=== PATIENT | male | born 1965 | race Caucasian/White ===

== ENCOUNTER → 2016-09-20 | Outpatient (CLI) | payer OTHER, BC ==
--- NOTE | 2016-09-20 14:11 | DI ---
MRI LUMBAR SPINE W/O CN,09/20/2016 1:11 PM: Clinical History: Low back pain Previous Exam: June 16, 2007 Findings: Multiplanar MR images are obtained through the lumbar spine without contrast, and demonstrate a anato cedric alignment without fractures. Postsurgical changes are seen consistent with interbody fusion at L1 / 2. There is disc desiccation at this level there is also some bony fusion at this level. The distal spinal cord descends normally with a normal conus at the L1 level. The paraspinal musculature is unremarkable. The major vascular flow voids are also unremarkable. Visualized portions of the kidneys are also unremarkable. Individual intervertebral disc spaces: L1/2: Status post interbody fusion of L1/2 without significant stenosis. L2/3: No significant stenosis. L3/4: There is a 3 mm broad-based disc bulge with facet and ligamentum flavum hypertrophy contributin g to mild bilateral lateral recess stenosis. L4/5: There is disc desiccation and an annular fissuring with a very small extrusion with some facet and ligamentum flavum hypertrophy contributing to stable mild bilateral lateral recess stenosis. L5/S1: There is disc desiccation, annular fissuring and a broad-based disc bulge with facet and ligam entum flavum hypertrophy contributing to stable mild to moderate bilateral lateral recess stenosis. Impression: L3/4: There is a 3 mm broad-based disc bulge with facet and ligamentum flavum hypertrophy contributin g to mild bilateral lateral recess stenosis. L4/5: There is disc desiccation and an annular fissuring with a very small extrusion with some facet and ligamentum flavum hypertrophy contributing to stable mild bilateral lateral recess stenosis. L5/S1: There is disc desiccation, annular fissuring and a broad-based disc bulge with facet and ligam entum flavum hypertrophy contributing to stable mild to moderate bilateral lateral recess stenosis.
== END ==
LOC: MRI 13:07
PROVIDERS: ATTEND Orthopaedic Surgery
DX: M54.5 Low back pain (principal); M47.26 Other spondylosis with radiculopathy, lumbar region; M47.27 Other spondylosis with radiculopathy, lumbosacral region
CPT/HCPCS: 72148